=== PATIENT | female | born 1990 | race Caucasian/White ===

== ENCOUNTER 2020-12-24 11:45 | Outpatient (CLI) | payer OTHER, SELFPAY | END 2020-12-24 11:46 | disposition home or self-care (01) | LOC: ANHCOVIDVC 11:45 | PROVIDERS: PCP Family Medicine | DX: Z23 Encounter for immunization (principal) | CPT/HCPCS: 0001A; 91300 ==

== ENCOUNTER 2021-01-14 11:44 | Outpatient (CLI) | payer OTHER, SELFPAY | END 2021-01-14 11:45 | disposition home or self-care (01) | LOC: ANHCOVIDVC 11:44 | PROVIDERS: PCP Family Medicine | DX: Z23 Encounter for immunization (principal) | CPT/HCPCS: 0002A; 91300 ==